=== PATIENT | female | born 1985 | race Caucasian/White ===

== ENCOUNTER 2018-02-01 05:42 | Emergency (ER) | payer OTHER ==
[~2018-02-01] VITALS: Ht 160 cm; Wt 77.1 kg
[~2018-02-01 05:42] MED LIST: NOHOMEMEDICATIONS
[2018-02-01] MEDS ORDERED: ACETAMINOPHEN-1 EAC1 PO (05:55)
[2018-02-01 06:03] VITALS: BP 118/80
== END 2018-02-01 06:04 | disposition home or self-care (01) ==
LOC: M.ERS 05:42
DX: K01.1 Impacted teeth (principal); J45.909 Unspecified asthma, uncomplicated